=== PATIENT | female | born 1990 | race Caucasian/White ===

== ENCOUNTER 2022-06-23 20:04 | Emergency (ER) | payer OTHER | END 2022-06-23 21:20 | disposition home or self-care (01) | LOC: CSHERS 20:04 | DX: O99.893 Other specified diseases and conditions complicating puerperium (principal); R10.30 Lower abdominal pain, unspecified; M54.50 Low back pain, unspecified; Z3A.35 35 weeks gestation of pregnancy; V89.2XXA Person injured in unspecified motor-vehicle accident, traffic, initial encounter | CPT/HCPCS: 99282 ==

== ENCOUNTER 2022-06-23 22:38 | Day surgery (SDC) | payer OTHER ==
[2022-06-23 23:06] VITALS: BMI 34.4
[2022-06-23] MEDS ORDERED: hydrALAZINE 20 MG/ML VIAL SLOW IVP PRN (23:41)
== END 2022-06-23 23:45 | disposition home or self-care (01) ==
LOC: CSHLD/OP 22:38
PROVIDERS: ATTEND Obstetrics & Gynecology
DX: O9A.213 Injury, poisoning and certain other consequences of external causes complicating pregnancy, third trimester (principal); R10.2 Pelvic and perineal pain; Z3A.35 35 weeks gestation of pregnancy; V43.92XA Unspecified car occupant injured in collision with other type car in traffic accident, initial encounter
CPT/HCPCS: 99281